=== PATIENT | male | born 1970 | race Caucasian/White ===

== ENCOUNTER 2020-02-16 18:46 | Emergency (ER) | payer OTHER ==
[~2020-02-16] VITALS: Ht 177.8 cm; Wt 112.8 kg
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
[2020-02-16 19:01] LABS: BASO # 0.1 x10^3/uL (0.0-0.2); BASO % 1 % (0-3); EOS # 0.2 x10^3/uL (0.0-0.7); EOS % 2 % (0-3); HEMATOCRIT 41.3 % (39.0-53.0); HEMOGLOBIN 14.7 g/dL (13.0-17.5); LYMPH # 2.3 x10^3/uL (1.0-4.8); LYMPH % 22 % (24-48); MEAN CORPUSCULAR HEMOGLOBIN 33 pg (25-35); MEAN CORPUSCULAR HGB CONC 36 g/dL (31-37); MEAN CORPUSCULAR VOLUME 92 fL (79-100); MONO # 0.6 x10^3/uL (0.0-1.1); MONO % 6 % (0-9); NEUT # 7.2 x10^3/uL (1.8-7.7); NEUT % 69 % (31-73); PLATELET COUNT 213 x10^3/uL (140-400); RED BLOOD COUNT 4.51 x10^6/uL (4.30-5.70); RED CELL DISTRIBUTION WIDTH 12.3 % (11.5-14.5); WHITE BLOOD COUNT 10.4 x10^3/uL (4.0-11.0)
[2020-02-16 19:09] LABS: CALCIUM 8.5 mg/dL (8.5-10.1); CREATININE 1.5 mg/dL (0.7-1.3); GFR 50.2; POTASSIUM 3.9 mmol/L (3.5-5.1)
[2020-02-16 19:15] LABS: ALBUMIN 3.7 g/dL (3.4-5.0); ALBUMIN/GLOBULIN RATIO 1.2 (1.0-1.7); TOTAL BILIRUBIN 0.5 mg/dL (0.2-1.0); TOTAL PROTEIN 6.8 g/dL (6.4-8.2)
[2020-02-16] MEDS ORDERED: LIDOCAINE 1% PF 30 ML VIAL. INJ ONE (19:15)
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
[2020-02-16 20:03] VITALS: BP 160/85
[2020-02-16] MEDS ORDERED: TRAM-48 PO (20:03)
[2020-02-16] MEDS ORDERED: CEPH-264 PO (20:04)
== END 2020-02-16 20:15 | disposition home or self-care (01) ==
LOC: ER 18:46
DX: S81.811A Laceration without foreign body, right lower leg, initial encounter (principal); R60.0 Localized edema; V29.9XXA Motorcycle rider (driver) (passenger) injured in unspecified traffic accident, initial encounter; Y93.89 Activity, other specified; Y92.413 State road as the place of occurrence of the external cause; Y99.8 Other external cause status
CPT/HCPCS: 12004; 36415; 73562; 73590; 80053; 85025; 96365; 99285; J0696; J3490; J0690

== ENCOUNTER 2020-02-22 06:39 | Emergency (ER) | payer OTHER ==
[~2020-02-22] VITALS: Ht 180.3 cm; Wt 104.5 kg
[~2020-02-22 06:39] MED LIST: CEPH-264 PO; TRAM-48 PO
[2020-02-22 06:50] VITALS: BP 148/89
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
[2020-02-22] MEDS ORDERED: IBUPROFEN 400 MG TABLET. PO ONE (07:45)
[2020-02-22] MEDS ORDERED: HYDROcodone/APAP 5/325MG 1 TAB TABLET PO ONE (07:45)
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
[2020-02-22] MEDS ORDERED: HYDR-3164 PO (09:39)
== END 2020-02-22 09:52 | disposition home or self-care (01) ==
LOC: ER 06:39
DX: S93.492A Sprain of other ligament of left ankle, initial encounter (principal); R60.0 Localized edema; I10 Essential (primary) hypertension; W22.8XXA Striking against or struck by other objects, initial encounter; Y93.55 Activity, bike riding; Y92.89 Other specified places as the place of occurrence of the external cause; Y99.8 Other external cause status
CPT/HCPCS: 73590; 73610; 73700; 99284